=== PATIENT | female | born 1960 | race African-American/Black ===

== ENCOUNTER → 2017-08-30 | Outpatient (CLI) | payer BC | LOC: BRMIMAGING 14:53 | PROVIDERS: ATTEND Family Medicine | DX: Z12.31 Encounter for screening mammogram for malignant neoplasm of breast (principal) ==

== ENCOUNTER → 2018-09-01 | Outpatient (CLI) | payer BC | LOC: BRMIMAGING 13:57 | PROVIDERS: ATTEND Family Medicine | DX: Z12.31 Encounter for screening mammogram for malignant neoplasm of breast (principal) ==